=== PATIENT | male | born 1995 | race Caucasian/White ===

== ENCOUNTER 2020-11-03 12:15 | Emergency (ER) | payer BC ==
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
[2020-11-03] MEDS: Lidocaine 1% with EPINEPHrine 1:100,000 50 ML MDV INFILT ONE (12:59)
[2020-11-03] MEDS: Bacitracin Oint 1 GM U/D Packet TOP ONE (12:59)
--- NOTE | 2020-11-06 10:48 | CR ---
Tibia Fibula Rt, CLINICAL HISTORY: Injury FINDINGS: Two views show no evidence of fracture or bone destruction. No soft tissue abnormality is seen. Impression: Negative Ankle Min 3V Rt CLINICAL HISTORY: Injury FINDINGS: The soft tissues are swollen laterally and posteriorly. No acute fracture or dislocation is noted. Ankle mortise is intact. Articular surfaces are smooth. IMPRESSION: No fracture or dislocation Moderate soft tissue swelling over the lateral ankle and posterior lower calf
== END 2020-11-03 13:33 | disposition home or self-care (01) ==
LOC: JP.ED 12:15
DX: S81.811A Laceration without foreign body, right lower leg, initial encounter (principal); Z88.0 Allergy status to penicillin; V86.99XA Unspecified occupant of other special all-terrain or other off-road motor vehicle injured in nontraffic accident, initial encounter
CPT/HCPCS: 12002; 73590-26-RT; 73590-RT; 73610-26-RT; 73610-RT; 99283; 99284-25